=== PATIENT | female | born 1950 | race Caucasian/White ===

== ENCOUNTER → 2017-04-27 | Outpatient (CLI) | payer BC | END | disposition home or self-care (01) | LOC: GMAB 10:43 | PROVIDERS: ATTEND Family Medicine | DX: Z00.01 Encounter for general adult medical examination with abnormal findings (principal); E07.9 Disorder of thyroid, unspecified ==

== ENCOUNTER → 2018-05-27 | Outpatient (CLI) | payer MEDICARE, BC | LOC: GMATM 18:39 | PROVIDERS: ATTEND Nurse Practitioner Family | DX: N30.00 Acute cystitis without hematuria (principal) ==

== ENCOUNTER → 2018-06-07 | Outpatient (CLI) | payer MEDICARE, BC | LOC: GMAE 14:40 | PROVIDERS: ATTEND Family Medicine | DX: E03.9 Hypothyroidism, unspecified (principal); I10 Essential (primary) hypertension ==

== ENCOUNTER → 2018-06-23 | Outpatient (CLI) | payer MEDICARE, BC ==
--- NOTE | 2018-06-23 14:36 | RAD ---
EXAM DESCRIPTION: Pelvis CLINICAL HISTORY: PAIN IN LEFT HIP COMPARISON: None. TECHNIQUE: AP pelvis FINDINGS: Degenerative changes are observed in the lower lumbar spine. There is mild convexity to the left. Mild osteopenia is observed. The pelvis is intact. No fracturing is detected. The proximal femurs are normal in appearance. No fracture is detected. IMPRESSION: Mild degenerative changes are observed. No fracturing is detected. Electronically signed by: Christiano Camara MD 06/23/2018 2:34 PM CDT
== END ==
LOC: RAD 08:53
PROVIDERS: ATTEND Orthopaedic Surgery
DX: M25.552 Pain in left hip (principal)

== ENCOUNTER → 2018-07-04 | Outpatient (CLI) | payer MEDICARE, BC | LOC: RESP 15:57 | PROVIDERS: ATTEND Orthopaedic Surgery | DX: Z01.818 Encounter for other preprocedural examination (principal) ==

== ENCOUNTER 2018-07-12 06:10 | Inpatient (IN) | payer MEDICARE, BC ==
--- NOTE | 2018-07-08 09:22 | HP ---
CHIEF COMPLAINT: Left knee pain. HISTORY OF PRESENT ILLNESS: Ms. Zimmer is a 67-year-old female with a history of pain in the left knee. She has had pain going on for years. She has had no trauma or surgery related to this. She has had injections. She has failed to get relief with the injections. Because of her failure of relief, she has requested operative intervention. After discussing the risks, benefits and alternatives to that, the patient has given informed consent. PAST SURGICAL HISTORY: 1. Lumpectomy. 2. Oophorectomy. 3. Hysterectomy. MEDICATIONS: 1. Azulfidine. 2. Aspirin. 3. Calcium. 4. Lasix. 5. Levoxyl. 6. Lidocaine patch. 7. Metanx. 8. Nasacort. 9. Fentanyl. 10. Potassium. 11. Prednisone. 12. Protonix. 13. Toprol. 14. Tretinoin. 15. Xalatan. 16. Zocor. 17. Benicar. ALLERGIES: CELEBREX. CODE STATUS: Full code. IMMUNIZATIONS: Up to date. FAMILY HISTORY: None pertinent to today's complaint. SOCIAL HISTORY: The patient does not drink, smoke or use any illicit drugs. REVIEW OF SYSTEMS: Negative except as indicated in the History of Present Illness. PHYSICAL EXAMINATION: VITAL SIGNS: Blood pressure 148/86. Pulse 87. Height 5'3". Weight 151 pounds. MENTAL STATUS: The patient is awake, alert, and is able to give a good history and participate in the physical. The patient is oriented to person, place and time. SKIN: Normal tone and turgor. HEENT: Normocephalic, atraumatic. Pupils equal, round and reactive. Mucosal membranes are moist. NECK: Normal range of motion. No thyromegaly, no lymphadenopathy. CHEST: Normal respiratory excursion. CARDIAC: Regular rate and rhythm. No murmurs, rubs or gallops. MUSCULOSKELETAL: Bilateral upper extremities show full active range of motion without significant pain. Sensation is intact. They is warm and well perfused. There is no deformity or crepitus. The right lower extremity shows full range of motion of the hip. There is no significant pain with range of motion of the hip. The knee does have pain and crepitus with range of motion. Sensation is intact throughout the extremity. It is warm and well perfused. She has no overall deformity. The left lower extremity shows no severe pain with range of motion of the hip. She does have pain with range of motion of the knee. She has crepitus throughout her range of motion. She has no varus/ valgus or anterior/posterior laxity. She has full extension with flexion to about 120 degrees. IMAGING: X-rays show severe arthritis. ASSESSMENT: 1. Arthritis. PLAN: The plan at this point is for total knee arthroplasty. We have discussed the risks, benefits, and alternatives to that and the patient has given informed consent. #[id number] [facility]
[~2018-07-12 06:10] MED LIST: LACTATED RINGERS 1,000 ML ONE; SODIUM CHL 0.9% 100ML MINI-BAG 100 ML IVPB ONE; SODIUM CHLORIDE 0.9% 100ML 100 ML IVPB ONE; SODIUM CHLORIDE 0.9% 250ML 250 ML ONE; TRANEXAMIC ACID 1,000 MG/10 ML VIAL ONE; VANCOMYCIN HCL INJ 1,000 MG VIAL IVPB ONE; ceFAZolin SODIUM 1 GM VIAL ONE
[2018-07-12] MEDS ORDERED: ceFAZolin SODIUM 1 GM VIAL ONE (07:56)
[2018-07-12] MEDS ORDERED: ONDANSETRON ODT 8 MG TAB ONE (08:05)
[2018-07-12] MEDS ORDERED: MORPHINE SULF *EPIDURAL* 1 MG/ML VIAL ONE (09:05)
[2018-07-12] MEDS ORDERED: MIDAZOLAM INJ 2 MG/2 ML VIAL ONE (09:05)
[2018-07-12] MEDS ORDERED: ACETAMINOPHEN IV 1000MG 100 ML ONE (09:05)
[2018-07-12] MEDS ORDERED: fentaNYL CITRATE INJ 50 MCG/ML AMP ONE (09:05)
[2018-07-12] MEDS ORDERED: raNITIdine HCL INJ 25 MG/ML VIAL IV ONE (10:00)
[2018-07-12] MEDS ORDERED: diphenhydrAMINE HCL 50 MG/ML VIAL IV ONE (10:00)
[2018-07-12] MEDS ORDERED: LIDOCAINE 1% 10 ML VIAL INJ ONE (10:00)
[2018-07-12] MEDS ORDERED: PROPOFOL 200 MG/20 ML VIAL IV ONE (10:00)
[2018-07-12] MEDS ORDERED: METOCLOPRAMIDE HCL INJ 10 MG/2 ML VIAL IV ONE (10:00)
[2018-07-12] MEDS ORDERED: DEXAMETHASONE INJ 10 MG/ML VIAL IV ONE (10:00)
[2018-07-12] MEDS: VANCOMYCIN HCL INJ 1,000 MG VIAL IVPB ONE ×2 (10:16→11:04)
[2018-07-12] MEDS: ceFAZolin SODIUM 1 GM VIAL ONE ×2 (10:16→11:04)
[2018-07-12] MEDS: BUPIVACAINE LIPOSOME 13.3 MG/ML VIAL INJ ONE ×2 (10:17→11:01)
[2018-07-12] MEDS: BUPIVACAINE 0.5% 30 ML VIAL INJ ONE ×2 (10:17→11:01)
[2018-07-12] MEDS ORDERED: BUPIVACAINE LIPOSOME 13.3 MG/ML VIAL INJ ONE (10:42)
[2018-07-12] MEDS ORDERED: PROMETHAZINE HCL INJ 12.5 MG in SODIUM CHLORIDE 0.9% 50ML 50 ML IVPB PRN (11:20)
[2018-07-12] MEDS ORDERED: BISACODYL SUPPOSITORY 10 MG PR PRN (11:20)
[2018-07-12] MEDS ORDERED: TEMAZEPAM 15 MG CAP PO PRN (11:20)
[2018-07-12] MEDS ORDERED: BENZOCAINE-MENTH LOZ (CEPACOL) 1 EA LOZ MT PRN (11:20)
[2018-07-12] MEDS ORDERED: ACETAMINOPHEN 500 MG TAB PO PRN (11:20)
[2018-07-12] MEDS ORDERED: NALOXONE HCL INJ 0.4 MG/ML VIAL IV PRN (11:20)
[2018-07-12] MEDS ORDERED: ACETAMINOPHEN 325 MG TAB PO PRN (11:20)
[2018-07-12] MEDS ORDERED: PROMETHAZINE HCL INJ 25 MG in SODIUM CHLORIDE 0.9% 50ML 50 ML IVPB PRN (11:20)
[2018-07-12] MEDS ORDERED: ALUMINUM & MAGNESIUM HYDROXIDE 30 ML UD PO PRN (11:20)
[2018-07-12] MEDS ORDERED: SODIUM CHLORIDE 0.9% (FLUSH) 10 ML SYG IV PRN (11:20)
[2018-07-12] MEDS ORDERED: MORPHINE SULFATE INJ 10 MG/ML VIAL IM PRN (11:20)
[2018-07-12] MEDS ORDERED: ZOLPIDEM TARTRATE 5 MG TAB PO PRN (11:20)
[2018-07-12] MEDS ORDERED: MAGNESIUM HYDROXIDE 30 ML UD PO PRN (11:20)
[2018-07-12] MEDS ORDERED: traMADol HCL 50 MG TAB PO PRN (11:20)
[2018-07-12] MEDS ORDERED: MORPHINE SULFATE INJ 10 MG/ML VIAL IV PRN (11:20)
[2018-07-12] MEDS ORDERED: TRANEXAMIC ACID INJ 1,000 MG in SODIUM CHLORIDE 0.9% 100ML 100 ML IVPB ONE (11:20)
[2018-07-12] MEDS ORDERED: CYCLOBENZAPRINE HCL 10 MG TAB PO PRN (11:20)
[2018-07-12] MEDS ORDERED: MORPHINE PCA 1 MG/ML 100 ML BAG IVPB SCH (11:30)
[2018-07-12] MEDS ORDERED: IV SET AND CAP CHANGE INJ INJ SCH (11:30)
[2018-07-12] MEDS ORDERED: LACTATED RINGERS 1,000 ML ONE (12:46)
--- NOTE | 2018-07-12 13:19 | RAD ---
EXAM DESCRIPTION: Knee,Left 2 or More Views CLINICAL HISTORY: post op total arthroplasty COMPARISON: 10 May 2018 TECHNIQUE: 2 views left FINDINGS: A left total knee arthroplasty is observed in place. Positioning is near-anatomic. Postoperative air is observed anteriorly. IMPRESSION: New left total knee arthroplasty. Electronically signed by: Christiano Camara MD 07/12/2018 1:17 PM CDT
[2018-07-12] MEDS ORDERED: NON-FORMULARY MEDICATION 1 EA MIS (Lidocaine 5% Patch [Lidoderm Patch] 1 EA) TOP PRN (14:32)
[2018-07-12] MEDS ORDERED: OLOPATADINE 0.1% OPHTH SOL 1 DROP BOTH_EYES PRN (14:32)
[2018-07-12] MEDS ORDERED: ceFAZolin SODIUM 2 GRAMS PREMI 50 ML IVPB ONE ×2 (15:38→19:40)
[2018-07-12] MEDS: ceFAZolin SODIUM 2 GRAMS PREMI 2 GM in PREMIX BAG 1 BAG IVPB SCH (16:08)
[2018-07-12] MEDS ORDERED: SODIUM CHLORIDE 0.9% 250ML 250 ML ONE ×2 (18:01→19:41)
[2018-07-12] MEDS ORDERED: VANCOMYCIN HCL INJ 1,000 MG VIAL IVPB ONE ×2 (18:02→19:41)
[2018-07-12] MEDS: ONDANSETRON INJ 4 MG/2 ML VIAL IV PRN (18:23)
[2018-07-12] MEDS ORDERED: PANTOPRAZOLE SODIUM TAB 40 MG PO ONE (19:39)
[2018-07-12] MEDS ORDERED: ENOXAPARIN SODIUM 30 MG/0.3 ML SYG SUBCU ONE (19:40)
[2018-07-12] MEDS: DEX 5% W/NACL 0.45% 1000ML 1,000 ML IVS PRN (19:52)
[2018-07-12] MEDS: VANCOMYCIN HCL INJ 1,000 MG in SODIUM CHLORIDE 0.9% 250ML 250 ML IVPB SCH (20:08)
[2018-07-12] MEDS: SIMVASTATIN 10 MG TAB PO SCH (20:37)
[2018-07-12] MEDS: DOCUSATE CALCIUM 240 MG CAP PO SCH (20:37)
[2018-07-12] MEDS: NON-FORMULARY MEDICATION 1 EA MIS (Latanoprost 0.005% Ophth [Xalatan 0.005% Ophthalmic Dro BOTH_EYES SCH (20:37)
[2018-07-12] MEDS: sulfaSALAzine TAB 500 MG TAB PO SCH (20:37)
--- NOTE | 2018-07-12 21:24 | CONS ---
DATE OF CONSULTATION: 07/12/18 SUPERVISING PHYSICIAN: Tay Conde M.D. REASON FOR CONSULTATION: Total left knee arthroplasty. HISTORY OF PRESENT ILLNESS: Ms. Zimmer is a 67 year-old female patient who has a longstanding history of left knee pain. She denied any trauma or surgery related to the pain but had tried multiple efforts at outpatient conservation treatment measures including injections. She had failed to receive any significant relief from her injections and requested elective operative intervention to control her pain. She was admitted today for a total left knee arthroplasty performed by Dr. Harshal Beltran. She had no intraoperative complications and was seen postoperatively, and was in stable condition. PAST MEDICAL HISTORY: 1. Ankylosing spondylitis. 2. Hypertension. 3. Hypothyroidism. PAST SURGICAL HISTORY: 1. Hysterectomy with oophorectomy. 2. Breast biopsy in 2001. CURRENT MEDICATIONS: 1. Glucosamine chondroitin 1 tablet b.i.d. 2. Calcium citrate 1 tablet daily. 3. Aspirin 81mg daily. 4. Xalatan 0.005% ophthalmic drops 1 drop both eyes at bedtime. 5. Cinebar 5/325 one tablet as needed every 4 hours. 6. Lidocaine 5% patches 1 topically as needed for pain. 7. Benicar 40-25 mg one tablet daily. 8. Metoprolol succinate extended release 50 mg daily. 9. Patanol both eyes as needed. 10. Pantoprazole 40 mg daily. 11. [place]-3 fatty acid 1 tablet daily. 12. Potassium chloride extended release 20 mEq daily. 13. Nasacort allergy 24 hour spray 55 mcg daily. 14. Azulfidine delayed release 1 tablet b.i.d. 15. Metanx 3-9.314-2-35 mg 1 capsule daily. 16. Carisoprodol 1 daily as needed for muscle spasms. 17. Simvastatin 10 mg daily. 18. Prednisone 2.5 mg daily. ALLERGIES: ROFECOXIB AND CELEBREX. FAMILY HISTORY: Mother at age 89 with complications from chronic obstructive pulmonary disease. Father at age 63 due to brain and lung cancer. She has 1 brother with Parkinson's disease. SOCIAL HISTORY: The patient is a homemaker. She is and has 2 children. She has never smoked tobacco and very infrequently uses alcohol. Has never utilized illicit drugs. REVIEW OF SYSTEMS: CONSTITUTIONAL: Denied any fevers, chills, body aches, unintentional weight loss. HEENT: Denied any nasal congestion, sinus headaches, ear aches, sore throat. CARDIOVASCULAR: Denies any chest pain, syncopal episodes or palpitations. RESPIRATORY: Denies any coughing, wheezing, shortness of breath, orthopnea. GASTROINTESTINAL: Denies any nausea, vomiting, diarrhea, constipation, abdominal pains. GENITOURINARY: Denies any dysuria, hematuria, polyuria or other urinary symptoms. MUSCULOSKELETAL: As noted in History of Present Illness. NEUROLOGIC: Denies any syncopal episodes, seizures, headaches, ataxia or other neurological deficits. PHYSICAL EXAMINATION: VITAL SIGNS: Temperature 97.0, pulse 72, blood pressure 141/79, respirations 16 , satting 98% on room air. Admission weight 72.9 kg. GENERAL: The patient is resting comfortably postoperatively. She is alert. Currently utilizing CPM. HEENT: Tympanic membranes are clear bilaterally. Oropharynx was pink and moist without any lesions. NECK: Supple, non-tender. Full range of motion. No jugular venous distention. CHEST: Lungs are clear to auscultation bilaterally without any rhonchi, wheezing or rales. HEART: Regular rate and rhythm without appreciable murmurs, gallops, or rubs. ABDOMEN: Soft, non-tender. Positive bowel sounds. EXTREMITIES: Left knee has a bulky dressing in place covered by an Kannan bandage with an Iceman currently on the CPM with pulses distally being 2+ bilaterally and capillary refill brisk. NEUROLOGIC: She is alert and oriented times three. Facial features are symmetrical. Extraocular movements are within normal limits. There is no notable nystagmus. Cranial nerves II-XII are grossly intact. LABORATORY: No preoperative laboratory available for review. Postoperative H& H is pending. RADIOLOGY: Postoperative knee x-ray left knee per radiology interpretation shows new left total knee arthroplasty. ASSESSMENT: 1. Postoperative day 0 for elective total knee arthroplasty having failed to respond to outpatient treatment measures. 2. Hypertension. 3. Ankylosing spondylitis. 4. Hypothyroidism. PLAN: The patient will be followed postoperatively as needed. Will defer surgical postoperative management including pain and fluids to Dr. Beltran. Will follow the patient along with Physical Therapy. Anticipate length of stay to be at least 2 to 3 days, possibly discharging or Wednesday. I will resume her home medications once those have been updated and verified in the electronic medical records. She is on DVT prophylaxis per protocol. Discharge planning preliminary family notes possibly leaning towards home health. Will continue to monitor and treat as needed until the patient is able to discharge and continue with outpatient management until discharge. Once discharged she will need close followup with Dr. Beltran and her primary care provider, Dr. Bejarano. #[id number] [facility]
[2018-07-12] MEDS: ENOXAPARIN SODIUM 30 MG/0.3 ML SYG SUBCU SCH (22:58)
[2018-07-13] MEDS: ceFAZolin SODIUM 2 GRAMS PREMI 2 GM in PREMIX BAG 1 BAG IVPB SCH ×2 (00:06→08:51)
[2018-07-13] MEDS ORDERED: diphenhydrAMINE HCL 25 MG CAP PO PRN (02:15)
[2018-07-13] MEDS: PANTOPRAZOLE SODIUM TAB 40 MG PO SCH (06:38)
[2018-07-13] MEDS ORDERED: ceFAZolin SODIUM 2 GM in SODIUM CHLORIDE 0.9% 100ML 100 ML IVPB SCH (07:00)
[2018-07-13] MEDS ORDERED: SODIUM CHLORIDE 0.9% 250ML 250 ML ONE (07:55)
[2018-07-13] MEDS ORDERED: VANCOMYCIN HCL INJ 1,000 MG VIAL IVPB ONE (07:57)
[2018-07-13] MEDS: VANCOMYCIN HCL INJ 1,000 MG in SODIUM CHLORIDE 0.9% 250ML 250 ML IVPB SCH (08:05)
[2018-07-13] MEDS ORDERED: SODIUM CHLORIDE 0.9% 100ML 100 ML IVPB ONE (08:45)
[2018-07-13] MEDS ORDERED: ceFAZolin SODIUM 1 GM VIAL ONE (08:45)
[2018-07-13] MEDS ORDERED: hydroCHLOROthiazide 25 MG TAB PO SCH (09:00)
[2018-07-13] MEDS ORDERED: ASPIRIN (ENTERIC COATED) 81 MG TAB PO SCH (09:00)
[2018-07-13] MEDS ORDERED: LOSARTAN POTASSIUM 100 MG TAB PO SCH ×2 (09:00)
[2018-07-13] MEDS: POTASSIUM CHLORIDE 20 MEQ TAB PO SCH (10:01)
[2018-07-13] MEDS: MAGNESIUM OXIDE 400 MG TAB PO SCH (10:01)
[2018-07-13] MEDS: METOPROLOL SUCCINATE XL 50 MG TAB PO SCH (10:02)
[2018-07-13] MEDS: predniSONE 5 MG TAB PO SCH (10:02)
[2018-07-13] MEDS: ENOXAPARIN SODIUM 30 MG/0.3 ML SYG SUBCU SCH ×2 (10:03→22:46)
[2018-07-13] MEDS: [UNRECOGNIZED DRUG - OTHER] PO SCH ×2 (10:03→17:07)
[2018-07-13] MEDS: METHYLFOLATE PO SCH ×2 (10:03→17:07)
[2018-07-13] MEDS: [UNRECOGNIZED DRUG - REMARK] SCH (10:06)
[2018-07-13] MEDS: OLMESARTAN MEDOXOMIL HYDROCHLO PO SCH (10:06)
[2018-07-13] MEDS: ONDANSETRON INJ 4 MG/2 ML VIAL IV PRN (10:10)
[2018-07-13] MEDS: sulfaSALAzine TAB 500 MG TAB PO SCH (10:29)
--- NOTE | 2018-07-13 13:59 | PN ---
DATE: 07/13/18 SUBJECTIVE: Ms. Zimmer is doing really well and her pain is well controlled. OBJECTIVE: Afebrile. Vital signs stable. Dressing is clean, dry and intact. She is up to a chair right now with the knee bent at 90 degrees. ASSESSMENT: Status post total knee arthroplasty. PLAN: The plan at this point is to begin weightbearing as tolerated today. We will progress both her weightbearing and CPM. #[id number] [facility]
--- NOTE | 2018-07-13 14:02 | OP ---
DATE OF PROCEDURE: 07/12/18 PREOPERATIVE DIAGNOSIS: 1. Osteoarthritis of the knee. POSTOPERATIVE DIAGNOSIS: 1. Osteoarthritis of the knee. PROCEDURE: 1. Total knee arthroplasty. SURGEON: Harshal Beltran MD. BIOMETRICS ANALYST: Michael Chan CST, SA-C. ANESTHESIA: General anesthesia. COMPLICATIONS: None. FINDINGS: Severe arthritis. INDICATION: Ms. Zimmer has a history of severe pain that has been getting progressively worse. She has failed conservative measures and as such as requested operative intervention. After discussing the risks, benefits and alternatives to that, the patient has given informed consent for total knee arthroplasty. PROCEDURE: The patient was brought to the Operating Room and placed in supine position. General anesthesia was induced and the patient's leg was sterilely prepped and draped. Following prepping and draping, the distal femur was exposed and using an intramedullary guide, the distal femoral cut was made. The appropriate sized cutting block was measured, pinned into place, and the anterior, posterior, and chamfer cuts were made. The ACL was transected and the tibia was subluxed. Both the medial and lateral menisci were removed. An intramedullary guide was used to make the proximal tibial cut. The appropriate sized base plate was placed and a trial polyethylene was placed. The trial femur was placed, the knee was reduced, and the knee was taken through a range of motion. The knee was stable in anterior, posterior, varus and valgus stress. The patella tracked anatomically without evidence of subluxation or dislocation. After trialing, the trial components were removed and the bony surfaces were thoroughly irrigated with saline. Following irrigation, the surfaces were dried and the final components were cemented into place. The excess cement was removed and the remaining cement was allowed to cure. The knee was again taken through a range of motion to confirm stability. The wound was then irrigated with saline and closure was performed using PDS to approximate the arthrotomy followed by closure of the subcutaneous tissues with a combination of running and interrupted Monocryl sutures. Sterile dressing was placed. The patient was awoken from anesthesia and taken to Recovery. POSTOPERATIVE PLAN: The patient will be weight-bearing as tolerated on postoperative day 1. COMPONENTS: Optimal+ Triathlon knee, size 3 femur, size 3 tibia, 9 mm insert. #[id number] [facility]
[2018-07-13] MEDS ORDERED: sulfaSALAzine TAB 500 MG TAB PO SCH (17:00)
--- NOTE | 2018-07-13 18:28 | PN ---
DATE: 07/13/18 SUPERVISING PHYSICIAN: Tay Conde M.D. SUBJECTIVE: The patient is lying in bed. She has just gotten off the CPM machine. Her pain level at this time is fairly high and I have asked the nurse to give her an extra bolus of her morphine as well as some Flexeril. Otherwise the patient has no complaints of shortness of breath, nausea, vomiting, diarrhea , constipation or chest pain. OBJECTIVE: VITAL SIGNS: Temperature 99.4, heart rate 80, blood pressure 154/75 , respiratory rate 18, O2 sat is 94% on room air. RESPIRATORY: Essentially clear to auscultation bilaterally. CARDIAC: Regular rate and rhythm. GASTROINTESTINAL: Abdomen is soft, nondistended, non-tender. Bowel sounds are positive. EXTREMITIES: Bilateral pedal pulses are palpable at +2. The dressing to her left knee is dry and intact. NEUROLOGIC: She is awake, alert and oriented times three. LABORATORY: Hemoglobin 10.7, hematocrit 31.5. All other labs and films have been reviewed via the EMR. ASSESSMENT: 1. Postoperative day #1 for elective left total knee arthroplasty having failed to respond to outpatient treatment measures. Surgery performed by Dr. Harshal Beltran, orthopedic surgeon. 2. Hypertension, stable. 3. Ankylosing spondylitis. 4. Hypothyroidism. PLAN: We will continue present supportive care. Orthopedic issues will be per Dr. Harshal Beltran. Her physical therapy will be continuing for strengthening and conditioning. I have encouraged good pulmonary hygiene, including her incentive spirometry. I will check with her later but hopefully her pain will be under control with an extra bolus and her Flexeril. Otherwise we will continue to monitor her closely and follow as needed. Dr. Conde is the collaborating physician available for consultation. #[id number] [facility]
[2018-07-13] MEDS: DEX 5% W/NACL 0.45% 1000ML 1,000 ML IVS PRN (20:15)
[2018-07-13] MEDS: SIMVASTATIN 10 MG TAB PO SCH (20:59)
[2018-07-13] MEDS: DOCUSATE CALCIUM 240 MG CAP PO SCH (20:59)
[2018-07-13] MEDS: NON-FORMULARY MEDICATION 1 EA MIS (Latanoprost 0.005% Ophth [Xalatan 0.005% Ophthalmic Dro RIGHT_EYE SCH (21:00)
[2018-07-13] MEDS: NON-FORMULARY MEDICATION 1 EA MIS (Latanoprost 0.005% Ophth [Xalatan 0.005% Ophthalmic Dro BOTH_EYES SCH (21:00)
[2018-07-14] MEDS: HYDROcodone 5MG/APAP 325MG 1 EA TAB PO PRN ×3 (05:34→13:33)
[2018-07-14] MEDS: PANTOPRAZOLE SODIUM TAB 40 MG PO SCH (06:07)
[2018-07-14] MEDS ORDERED: sulfaSALAzine TAB 500 MG TAB PO SCH (07:30)
[2018-07-14] MEDS: POTASSIUM CHLORIDE 20 MEQ TAB PO SCH (07:40)
--- NOTE | 2018-07-14 07:51 | PN ---
DATE: 07/14/18 SUBJECTIVE: Ms. Zimmer is pretty much resting right now. Her pain is well controlled. OBJECTIVE: Afebrile. Vital signs stable. Wound is clean. There are no signs or symptoms of infection. ASSESSMENT: Status post total knee arthroplasty. PLAN: The plan is to continue weightbearing as tolerated. [facility][id number] [facility]
[2018-07-14] MEDS: [UNRECOGNIZED DRUG - OTHER] PO SCH (08:27)
[2018-07-14] MEDS: METHYLFOLATE PO SCH (08:27)
[2018-07-14] MEDS: predniSONE 5 MG TAB PO SCH (08:28)
[2018-07-14] MEDS: MAGNESIUM OXIDE 400 MG TAB PO SCH (08:28)
[2018-07-14] MEDS: OLMESARTAN MEDOXOMIL HYDROCHLO PO SCH (08:28)
[2018-07-14] MEDS: METOPROLOL SUCCINATE XL 50 MG TAB PO SCH (08:29)
[2018-07-14] MEDS: SODIUM CHLORIDE 0.9% (FLUSH) 10 ML SYG IV SCH ×2 (08:30→20:29)
[2018-07-14] MEDS: [UNRECOGNIZED DRUG - REMARK] SCH (08:31)
[2018-07-14] MEDS: sulfaSALAzine DELAYED RELEASE 500 MG TAB PO SCH ×2 (08:39→20:29)
[2018-07-14] MEDS: ENOXAPARIN SODIUM 30 MG/0.3 ML SYG SUBCU SCH ×3 (10:33→22:30)
--- NOTE | 2018-07-14 13:42 | PN ---
SUPERVISING PHYSICIAN: Tay Conde M.D. DATE: 07/14/18 SUBJECTIVE: The patient is sitting up on the side of her bed. She still has issues with pain at night, but it is much better than yesterday. She felt like her physical therapy went well. She still has a poor appetite. We discussed muscle relaxers and pain medications and she should not let her pain get too out of control before she asks for pain medications. She agreed. Otherwise, no complaints of shortness of breath, nausea, vomiting, diarrhea, constipation or chest pain. OBJECTIVE: VITAL SIGNS: Afebrile. Heart rate 78. Blood pressure 150/77. Respiratory rate 20. O2 saturation 95% 2 liters nasal cannula. RESPIRATORY: Essentially clear to auscultation bilaterally. CARDIAC: Regular rate and rhythm. EXTREMITIES: Her left knee has a nylon dressing that is dry and intact. Her left knee is slightly swollen, but appears to be without any complications. Bilateral pedal pulses are palpable at +2. NEUROLOGIC: She is awake, alert and oriented times three. LABORATORY: There are no labs or films to report at this time. ASSESSMENT: 1. Postoperative day #2 for elective left total knee arthroplasty having failed to respond to outpatient treatment measures. Surgery performed by Dr. Harshal Beltran, orthopedic surgeon. 2. Hypertension, stable. 3. Ankylosing spondylitis. 4. Hypothyroidism. PLAN: We will continue present supportive care. Orthopedic issues will be per Dr. Harshal Beltran, orthopedic surgeon. She will continue with her physical therapy and her strengthening and conditioning. I have given her a slight increase in her hydrocodone if she needs it for pain control. I encouraged good pulmonary hygiene. At discharge, she plans to go to the [facility] outpatient physical therapy department for her post discharge therapy. We will continue to monitor her closely and follow as needed. Dr. Conde is the collaborating physician available for consultation. #[id number] [facility]
[2018-07-14] MEDS: HYDROcodone 7.5MG/APAP 325MG 1 EA TAB PO PRN ×2 (17:37→22:05)
[2018-07-14] MEDS: NON-FORMULARY MEDICATION 1 EA MIS (Vortioxetine Hbr [Trintellix] 10 MG) PO SCH (17:42)
[2018-07-14] MEDS: NON-FORMULARY MEDICATION 1 EA MIS (Latanoprost 0.005% Ophth [Xalatan 0.005% Ophthalmic Dro BOTH_EYES SCH (20:29)
[2018-07-14] MEDS: SIMVASTATIN 10 MG TAB PO SCH (20:29)
[2018-07-14] MEDS: DOCUSATE CALCIUM 240 MG CAP PO SCH (20:29)
[2018-07-14] MEDS: NON-FORMULARY MEDICATION 1 EA MIS (Latanoprost 0.005% Ophth [Xalatan 0.005% Ophthalmic Dro RIGHT_EYE SCH (20:30)
[2018-07-15] MEDS: PANTOPRAZOLE SODIUM TAB 40 MG PO SCH (06:31)
[2018-07-15 07:41] VITALS: O2SAT 97
[2018-07-15] MEDS: HYDROcodone 7.5MG/APAP 325MG 1 EA TAB PO PRN (08:03)
[2018-07-15] MEDS: sulfaSALAzine DELAYED RELEASE 500 MG TAB PO SCH (08:03)
[2018-07-15] MEDS: POTASSIUM CHLORIDE 20 MEQ TAB PO SCH (08:03)
[2018-07-15] MEDS: MAGNESIUM OXIDE 400 MG TAB PO SCH (08:03)
[2018-07-15] MEDS: SODIUM CHLORIDE 0.9% (FLUSH) 10 ML SYG IV SCH (08:04)
[2018-07-15] MEDS: METHYLFOLATE PO SCH (08:04)
[2018-07-15] MEDS: [UNRECOGNIZED DRUG - REMARK] SCH (08:04)
[2018-07-15] MEDS: METOPROLOL SUCCINATE XL 50 MG TAB PO SCH (08:04)
[2018-07-15] MEDS: [UNRECOGNIZED DRUG - OTHER] PO SCH (08:04)
[2018-07-15] MEDS: OLMESARTAN MEDOXOMIL HYDROCHLO PO SCH (08:05)
[2018-07-15] MEDS: predniSONE 5 MG TAB PO SCH (08:06)
[2018-07-15] MEDS: NON-FORMULARY MEDICATION 1 EA MIS (Vortioxetine Hbr [Trintellix] 10 MG) PO SCH (08:07)
[2018-07-15] MEDS: ONDANSETRON INJ 4 MG/2 ML VIAL IV PRN (08:44)
[2018-07-15] MEDS: ENOXAPARIN SODIUM 30 MG/0.3 ML SYG SUBCU SCH (10:31)
[2018-07-15 10:47] VITALS: BP 130/80; TEMP 98.9
[2018-07-15] MEDS ORDERED: MAGNESIUM HYDROXIDE 30 ML UD PO ONE (21:00)
[2018-07-15] MEDS ORDERED: BISACODYL SUPPOSITORY 10 MG PR ONE (21:00)
--- NOTE | 2018-07-18 11:54 | DS ---
SUPERVISING PHYSICIAN: Tay Conde MD ADMISSION DIAGNOSIS: 1. Elective total knee arthroplasty having failed to respond to outpatient treatment plan. 2. Hypertension. 3. Ankylosing spondylitis. 4. Hypothyroidism. DISCHARGE DIAGNOSIS: 1. Postoperative day 4 for left total knee arthroplasty having to respond to outpatient treatment measures. Surgery performed by Dr. Harshal Beltran, orthopedic surgeon. REASON FOR HOSPITALIZATION: Ms. Zimmer is a 67 year-old female patient with a longstanding history of knee pain, more on the left than the right. She denied any trauma or surgery related to the pain, but had tried multiple efforts at outpatient conservation treatment measures including injections and physical therapy. She had failed to receive any significant relief from the treatments and requested elective operative intervention to control her pain. She was admitted for elective total left knee arthroplasty on 07/12/18 and seen in the immediate postoperative state. LABORATORY: Postoperative hemoglobin and hematocrit were 10.7 and 31.5 respectively. CONSULTATIONS: Medical consultation, hospitalist services. Please see that note for full details. PROCEDURES: Total knee arthroplasty, left, performed by Dr. Harshal Beltran. HOSPITAL COURSE: Ms. Zimmer was admitted on 07/12/18 for elective left total knee arthroplasty. She did well intraoperatively and had no complications postoperatively. She progressed through her physical therapy and was felt on day of discharge strong enough to continue with outpatient physical therapy efforts. PLAN: Ms. Zimmer was to followup with Dr. Beltran on 07/29/18 at 8:45 AM. Diet was to be regular diet as tolerated. Activity was per physical therapy. Wound care management was as per Dr. Beltran's postoperative joint replacement instructions provided to the patient. DISCHARGE MEDICATIONS: 1. Flexeril 10 mg q.8h. as needed, #15. 2. Mccleary 5/325, 1 q.4h. as needed, #[address] Belrtan. 3. Xarelto 10 mg daily, #8. All other home medications were continued as prior to hospitalization. DISPOSITION: The patient was discharged home with her to [facility]. Condition on discharge was stable and improved. [facility][id number] [facility]
== END 2018-07-15 11:48 | disposition home or self-care (01) | DRG 470 ==
LOC: AMB 06:10 → MS 13:10
PROVIDERS: ADMIT Orthopaedic Surgery; ATTEND Nurse Practitioner Family
PROC: 0SRD0J9 Replacement of Left Knee Joint with Synthetic Substitute, Cemented, Open Approach (ICD-10-PCS; principal; 2018-07-12 09:25)
DX: M17.12 Unilateral primary osteoarthritis, left knee (principal); I10 Essential (primary) hypertension; E03.9 Hypothyroidism, unspecified; M24.662 Ankylosis, left knee; Z88.8 Allergy status to other drugs, medicaments and biological substances; Z79.82 Long term (current) use of aspirin

== ENCOUNTER → 2018-08-01 | Outpatient (CLI) | payer MEDICARE ==
--- NOTE | 2018-08-01 17:24 | US ---
Procedure: US LOWER EXTREMITY VEINS LIMITED/UNILATERAL/FOLLOW UP Exam Date: 08/01/2018 Ordering Provider: KSENIA YOUSSEF Clinical Indication: Left lower extremity swelling and pain Comparison: None Real time ultrasound was utilized for evaluation of the deep veins of the Left lower extremity. Color Doppler and pulse Doppler analysis was performed, including B-mode/grayscale imaging, Doppler spectral analysis and color flow analysis. Real time visualization of the left lower extremity deep veins was accomplished. Tub Operator images recorded. The deep veins demonstrated no abnormal intraluminal signal. The pulse Doppler and color Doppler flow patterns demonstrated normal venous flow with respiratory variation. There was increased flow with distal augmentation maneuvers. IMPRESSION: No evidence of DVT in the left lower extremity. Electronically signed by: Madi Aguilar MD 08/01/2018 5:23 PM [employer]
== END ==
LOC: US 15:55
PROVIDERS: ATTEND Orthopaedic Surgery
DX: R60.9 Edema, unspecified (principal)

== ENCOUNTER → 2019-06-12 | Outpatient (CLI) | payer MEDICARE | LOC: GMAE 10:37 | PROVIDERS: ATTEND Family Medicine | DX: E03.9 Hypothyroidism, unspecified (principal); I10 Essential (primary) hypertension; E78.5 Hyperlipidemia, unspecified ==

== ENCOUNTER → 2020-04-01 | Outpatient (CLI) | payer MEDICARE | LOC: GMAE 14:06 | PROVIDERS: ATTEND Family Medicine | DX: D51.9 Vitamin B12 deficiency anemia, unspecified (principal); D50.8 Other iron deficiency anemias ==

== ENCOUNTER → 2020-06-17 | Outpatient (CLI) | payer MEDICARE | LOC: GMAE 14:23 | PROVIDERS: ATTEND Family Medicine | DX: M05.79 Rheumatoid arthritis with rheumatoid factor of multiple sites without organ or systems involvement (principal) ==

== ENCOUNTER → 2020-07-01 | Outpatient (CLI) | payer MEDICARE | LOC: GMAE 10:42 | PROVIDERS: ATTEND Family Medicine | DX: E03.9 Hypothyroidism, unspecified (principal); I10 Essential (primary) hypertension; E78.5 Hyperlipidemia, unspecified ==

== ENCOUNTER → 2020-09-30 | Outpatient (CLI) | payer MEDICARE | LOC: GMAE 17:14 | PROVIDERS: ATTEND Family Medicine | DX: M05.79 Rheumatoid arthritis with rheumatoid factor of multiple sites without organ or systems involvement (principal) ==